=== PATIENT | female | born 1995 | race American Indian/Alaskan Native ===

== ENCOUNTER 2022-01-16 11:28 | Emergency (ER) | payer SELFPAY ==
--- NOTE | 2022-01-16 14:46 | XRay Report ---
CHEST 2 VIEWS INDICATION: Chest Pain. COMPARISON: None. FINDINGS: Support devices: None. Heart: Within normal limits. Lungs/Pleura: No acute air space or interstitial disease. No significant pleural effusion. IMPRESSION: No acute findings. Signer Name: Phillip Russell MD Signed: 01/16/2022 2:41 PM Workstation Name: [id number]
--- NOTE | 2022-01-16 15:00 | Event Note ---
ED Screening Note ED Screening Note: 26-year-old female history of hypertension on amlodipine regimen compliance sent in from her doctor's office for evaluation of uncontrolled blood pressure with headache and dizziness which started this morning. 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 In the setting of a significantly high volume and record number of patients presenting to the emergency department and the fact that we have a limited space to see patients we have implemented the provider in triage protocol this allows an expedited initial exam of patients that might otherwise have left without being seen or who would wait longer than usual to be seen by provider. I interviewed the patient and performed a limited physical exam. This patient is a pulled from the waiting room to triage room for an initial assessment of adrenal studies and then returned to the waiting room pending results of the studies. The ultimate final evaluation and disposition may be performed by another provider depending on room and provider availability.
[2022-01-16 15:41] LABS: Basophils % (Auto) 0.6 % (0.0-1.8); Eosinophils # (Auto) 0.1 K/mm3 (0.0-0.4); Eosinophils % (Auto) 1.5 % (0.0-4.3); Hematocrit 39.5 % (30.3-42.9); Hemoglobin 12.5 gm/dl (10.1-14.3); Lymphocytes # (Auto) 3.2 K/mm3 (1.2-5.4); Lymphocytes % (Auto) 39.9 % (13.4-35.0); Mean Corpuscular HGB Conc 32 % (30-34); Mean Corpuscular Volume 83 fl (79-97); Monocytes # (Auto) 0.4 K/mm3 (0.0-0.8); Monocytes % (Auto) 5.2 % (0.0-7.3); Platelet Count 384 K/mm3 (140-440); Red Blood Count 4.76 M/mm3 (3.65-5.03); Red Cell Distribution Width 14.7 % (13.2-15.2)
[2022-01-16 16:05] LABS: Alanine Aminotransferase 16 units/L (7-56); Albumin 4.6 g/dL (3.9-5); BUN/Creatinine Ratio 14; Blood Urea Nitrogen 11 mg/dL (7-17); Hemolysis Index 5
--- NOTE | 2022-01-16 16:16 | Cat Scan Report ---
CT head/brain wo con INDICATION / CLINICAL INFORMATION: 26 years Female; manning, hypertensive emergency. TECHNIQUE: Routine CT head without contrast. All CT scans at this location are performed using CT dos e reduction for ALARA by means of automated exposure control. COMPARISON: None. FINDINGS: BRAIN / INTRACRANIAL CONTENTS: No acute hemorrhage, mass effect, midline shift, hydrocephalus, or acu te, large territorial infarct. No signs of significant atrophy or chronic infarct. No significant whi te matter abnormality seen. CRANIOCERVICAL JUNCTION: No significant abnormality. ORBITS: No significant abnormality of visualized orbits. SINUSES / MASTOIDS: Minimal mucosal thickening in the ethmoids. ADDITIONAL FINDINGS: None. IMPRESSION: 1. No focal mass, hemorrhage, hydrocephalus, or acute, large territorial infarct. Signer Name: Jeffry Tse MD, III Signed: 01/16/2022 4:13 PM Workstation Name: [id number]
[2022-01-16] MEDS ORDERED: cloNIDine 0.1 MG TAB PO ONE (19:37)
[2022-01-16 22:38] LABS: Mucus,Urine 2+ /HPF; WBC,Urine < 1.0 /HPF (0.0-6.0)
--- NOTE | 2022-01-16 22:43 | Emergency Department Report ---
ED General Adult HPI - General Chief complaint: Medical Clearance Stated complaint: My doctor sent me here because my blood pressure is elevated Time Seen by Provider: 01/16/22 22:36 Source: patient, RN notes reviewed, old records reviewed Mode of arrival: Ambulatory Limitations: No Limitations - History of Present Illness Initial comments: The patient was evaluated in the emergency department for symptoms described in the history of present illness. He/she was evaluated in the context of the global COVID-19 pandemic, which necessitated consideration that the patient might be at risk for infection with the virus that causes COVID-19. Institution al protocols and algorithms that pertain to the evaluation of patients at risk for COVID-19 are in a state of rapid change based on information released by regulatory bodies including the CDC and federal and state organizations. These policies and algorithms were followed during the patient's care in the emergency department. Please note that these policies, procedures and recommendations changed on a rapid basis. This is a pleasant and cooperative 26-year-old female. She states that she is not and further reports that she has not delivered her given in the past 6 weeks. She has a history of body mass index of 41, she is not COVID- 19 vaccinated, and she has a history of hypertension. She ran out of her amlodipine, 10 mg daily, a few days ago. She states that she went to her primary care doctor's office, was found to have a blood pressure of 220, and is referred to the emergency room. To me, the patient denies all physical complaints, except for right-sided achy shoulder pain, because she believes that she slept on the shoulder or rested on it incorrectly. She denies a personal and family history of DVT, PE, CO, and ACS. She denies travel, surgery, immobilization, DVT and PE risk factors. She denies oral contraceptive use. 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 Patient does report that she snores quite a bit at night, but believes that sleep for the most part is restful, and reports that she typically does not fall asleep while watching TV or movies. She has no additional injuries or complaints at this time, and is indicative that she would like to be discharged -: days(s) Severity scale (0 -10): 7 Consistency: now resolved Improves with: medication Worsens with: other (Running out of medication) Associated Symptoms: denies other symptoms, other (Right shoulder pain) - Related Data Previous Rx's Medication Instructions Recorded Last Taken Type Permethrin 5% [Acticin 5% CREAM] 1 applicatio TP ONCE #60 gram 05/11/14 Unknown Rx Nitrofurantoin Shackelford/M-Cryst 100 mg PO Q12HR #14 capsule 08/29/15 Unknown Rx [Macrobid CAP] Amlodipine Besylate [Norvasc] 10 mg PO QDAY #60 tab 01/16/22 Unknown Rx Allergies Allergy/AdvReac Type Severity Reaction Status Date / Time No Known Allergies Allergy Verified 01/16/22 13:22 ED Review of Systems ROS: Stated complaint: CHEST PAIN/HIGH BP /HEADACHE Other details as noted in HPI Comment: All other systems reviewed and negative Musculoskeletal: arthralgia ED Past Medical Hx - Past Medical History Previous Medical History?: Yes Hx Hypertension: Yes - Surgical History Past Surgical History?: No - Social History Smoking Status: Never Smoker Substance Use Type: None - Medications Home Medications: Home Medications Medication Instructions Recorded Confirmed Last Taken Type Permethrin 5% [Acticin 5% CREAM] 1 applicatio TP ONCE #60 gram 05/11/14 Unknown Rx Nitrofurantoin Shackelford/M-Cryst 100 mg PO Q12HR #14 capsule 08/29/15 Unknown Rx [Macrobid CAP] Amlodipine Besylate [Norvasc] 10 mg PO QDAY #60 tab 01/16/22 Unknown Rx ED Physical Exam - General Limitations: No Limitations General appearance: alert, in no apparent distress, obese - Head Head exam: Present: atraumatic, normocephalic - Eye Eye exam: Present: normal appearance, EOMI, other (Visual acuity is intact to finger counting and color perception at a close distance). Absent: nystagmus - ENT ENT exam: Present: normal exam, normal orophraynx, mucous membranes moist - Neck Neck exam: Present: normal inspection, full ROM. Absent: tenderness, meningismus - Respiratory Respiratory exam: Present: normal lung sounds bilaterally. Absent: respiratory distress, wheezes, rales, rhonchi, stridor, decreased breath sounds - Cardiovascular Cardiovascular Exam: Present: regular rate, normal rhythm, normal heart sounds. Absent: bradycardia, tachycardia, irregular rhythm, systolic murmur, diastolic murmur, rubs, gallop - GI/Abdominal GI/Abdominal exam: Present: soft. Absent: distended, tenderness, guarding, rebound, rigid, pulsatile mass - Extremities Exam Extremities exam: Present: normal inspection, full ROM, normal capillary refill, other (2+ pulses noted in the bilateral upper and lower extremities. There is no palpable cord. negative Homans sign. Muscular compartments are soft. The pelvis is stable.). Absent: calf tenderness - Back Exam Back exam: Present: normal inspection, full ROM. Absent: muscle spasm, paraspinal tenderness, vertebral tenderness - Neurological Exam Neurological exam: Present: alert, oriented X3, normal gait, other (No facial droop. Tongue midline. Extraocular movements intact bilaterally. Facial sensation intact to light touch in V1, V2, V3 distribution bilaterally. 5 and a 5 strength in 4 extremities. Sensation intact to light touch in 4 extremities.). Absent: motor sensory deficit - Psychiatric Psychiatric exam: Present: normal affect, normal mood - Skin Skin exam: Present: warm, dry, intact, normal color. Absent: rash ED Course Vital Signs 01/16/22 01/16/22 01/16/22 13:19 17:17 19:35 Temperature 98.9 F Pulse Rate 89 100 H 89 Respiratory 18 Rate Blood Pressure Blood Pressure 191/110 190/98 [Left] O2 Sat by Pulse 100 99 99 Oximetry 01/16/22 01/16/22 19:43 21:22 Temperature 98.4 F Pulse Rate 84 87 Respiratory 18 Rate Blood Pressure 190/98 Blood Pressure 169/114 [Left] O2 Sat by Pulse 99 Oximetry ED Medical Decision Making - Lab Data Result diagrams: 01/16/22 15:19 01/16/22 15:19 Vital Signs 01/16/22 01/16/22 01/16/22 13:19 17:17 19:35 Temperature 98.9 F Pulse Rate 89 100 H 89 Respiratory 18 Rate Blood Pressure Blood Pressure 191/110 190/98 [Left] O2 Sat by Pulse 100 99 99 Oximetry 01/16/22 01/16/22 19:43 21:22 Temperature 98.4 F Pulse Rate 84 87 Respiratory 18 Rate Blood Pressure 190/98 Blood Pressure 169/114 [Left] O2 Sat by Pulse 99 Oximetry Lab Results 01/16/22 01/16/22 01/16/22 Range/Units 15:19 15:19 15:19 WBC 8.0 (4.5-11.0) K/mm3 RBC 4.76 (3.65-5.03) M/mm3 Hgb 12.5 (10.1-14.3) gm/dl Hct 39.5 (30.3-42.9) % MCV 83 (79-97) fl MCH 26 L (28-32) pg MCHC 32 (30-34) % RDW 14.7 (13.2-15.2) % Plt Count 384 (140-440) K/mm3 Lymph % (Auto) 39.9 H (13.4-35.0) % Shackelford % (Auto) 5.2 (0.0-7.3) % Eos % (Auto) 1.5 (0.0-4.3) % Baso % (Auto) 0.6 (0.0-1.8) % Lymph # (Auto) 3.2 (1.2-5.4) K/mm3 Shackelford # (Auto) 0.4 (0.0-0.8) K/mm3 Eos # (Auto) 0.1 (0.0-0.4) K/mm3 Baso # (Auto) 0.0 (0.0-0.1) K/mm3 Seg Neutrophils % 52.8 (40.0-70.0) % Seg Neutrophils # 4.2 (1.8-7.7) K/mm3 Sodium 141 (137-145) mmol/L Potassium 3.9 (3.6-5.0) mmol/L Chloride 103.6 (98-107) mmol/L Carbon Dioxide 28 (22-30) mmol/L Anion Gap 13 mmol/L BUN 11 (7-17) mg/dL Creatinine 0.8 (0.6-1.2) mg/dL Estimated GFR > 60 ml/min BUN/Creatinine Ratio 14 % Glucose 84 (65-100) mg/dL Calcium 9.0 (8.4-10.2) mg/dL Total Bilirubin 0.40 (0.1-1.2) mg/dL AST 21 (5-40) units/L ALT 16 (7-56) units/L Alkaline Phosphatase 90 (35-129) units/L Troponin T < 0.010 (0.00-0.029) ng/mL Total Protein 7.3 (6.3-8.2) g/dL Albumin 4.6 (3.9-5) g/dL Albumin/Globulin Ratio 1.7 % Lipase 21 (13-60) units/L HCG, Qual (Negative) 01/16/22 Range/Units 15:19 WBC (4.5-11.0) K/mm3 RBC (3.65-5.03) M/mm3 Hgb (10.1-14.3) gm/dl Hct (30.3-42.9) % MCV (79-97) fl MCH (28-32) pg MCHC (30-34) % RDW (13.2-15.2) % Plt Count (140-440) K/mm3 Lymph % (Auto) (13.4-35.0) % Shackelford % (Auto) (0.0-7.3) % Eos % (Auto) (0.0-4.3) % Baso % (Auto) (0.0-1.8) % Lymph # (Auto) (1.2-5.4) K/mm3 Shackelford # (Auto) (0.0-0.8) K/mm3 Eos # (Auto) (0.0-0.4) K/mm3 Baso # (Auto) (0.0-0.1) K/mm3 Seg Neutrophils % (40.0-70.0) % Seg Neutrophils # (1.8-7.7) K/mm3 Sodium (137-145) mmol/L Potassium (3.6-5.0) mmol/L Chloride (98-107) mmol/L Carbon Dioxide (22-30) mmol/L Anion Gap mmol/L BUN (7-17) mg/dL Creatinine (0.6-1.2) mg/dL Estimated GFR ml/min BUN/Creatinine Ratio % Glucose (65-100) mg/dL Calcium (8.4-10.2) mg/dL Total Bilirubin (0.1-1.2) mg/dL AST (5-40) units/L ALT (7-56) units/L Alkaline Phosphatase (35-129) units/L Troponin T (0.00-0.029) ng/mL Total Protein (6.3-8.2) g/dL Albumin (3.9-5) g/dL Albumin/Globulin Ratio % Lipase (13-60) units/L HCG, Qual Negative (Negative) - EKG Data -: EKG Interpreted by Pr EKG shows normal: sinus rhythm Rate: normal - EKG Data 01/16/22 22:38 The EKG is interpreted 22: 38 Sinus rhythm, rate 76 bpm. Normal axis, normal P wave axis, high left ventricular voltage, QTC 4 6 6 ms. This is an abnormal EKG. This is not a STEMI. - Radiology Data Radiology results: pending, report reviewed, image reviewed CT head/brain wo con INDICATION / CLINICAL INFORMATION: 26 years Female; manning, hypertensive emergency. TECHNIQUE: Routine CT head without contrast. All CT scans at this location are performed using CT dose reduction for ALARA by means of automated exposure control. COMPARISON: None. FINDINGS: BRAIN / INTRACRANIAL CONTENTS: No acute hemorrhage, mass effect, midline shift, hydrocephalus, or acute, large territorial infarct. No signs of significant atrophy or chronic infarct. No significant white matter abnormality seen. CRANIOCERVICAL JUNCTION: No significant abnormality. ORBITS: No significant abnormality of visualized orbits. SINUSES / MASTOIDS: Minimal mucosal thickening in the ethmoids. ADDITIONAL FINDINGS: None. IMPRESSION: 1. No focal mass, hemorrhage, hydrocephalus, or acute, large territorial infarct. Signer Name: Jeffry Tse MD, III Signed: 01/16/2022 3:13 PM Workstation Name: [id number] [id number] CHEST 2 VIEWS INDICATION: Chest Pain. COMPARISON: None. FINDINGS: Support devices: None. Heart: Within normal limits. Lungs/Pleura: No acute air space or interstitial disease. No significant pleural effusion. IMPRESSION: No acute findings. Signer Name: Phillip Russell MD Signed: 01/16/2022 1:41 PM Workstation Name: [id number] - Medical Decision Making Differential diagnosis, including but not limited to: Obesity, obstructive sleep apnea, hypertension, medication refill Assessment and plan: 26-year-old female with chronic hypertension. She is clinically sober with a GCS of 15, an NIH score of 0. She denies all physical complaints and pain to myself, with exception of nontraumatic right-sided shoulder pain, and the does not appear to be any shoulder redness, pus or streaking. Declines pain medication at this time. X-ray the chest, noncontrast CT scan of the brain, and laboratory studies were ordered prior to my personal evaluation. As per review of chart, the patient reportedly complained of nonspecific headache and chest pain. The patient is not currently tachycardic, tachypneic or hypoxic, she denies DVT and pulmonary embolism risk factors, she is low risk by Wells criteria for pulmonary embolism, and she is PERC negative. The patient is at low risk for major adverse cardiac event as per heart score. Troponin negative x1 in the context of days of elevated blood pressure. Patient has equal pulses in the upper and lower extremities, no pulsatile abdominal mass, and an unremarkable x-ray of the chest, therefore, aortic disease is very unlikely. Patient at low risk for major adverse cardiac event as per heart score. Patient has chronically elevated blood pressure, please reference the [employer] clinical policy on asymptomatic hypertension. She may have a component of undiagnosed obstructive sleep apnea, but she does n ot appear to be significantly symptomatic, I will defer to her outpatient primary care doctor to further evaluate and manage. Patient observed in this department for hours without clinical decompensation, and she is suitable for discharge with outpatient follow-up and amlodipine refill. Return precautions are reviewed. All questions answered Critical care attestation.: If time is entered above; I have spent that time in minutes in the direct care of this critically ill patient, excluding procedure time. ED Disposition Clinical Impression: Elevated blood pressure reading, Medication refill, History of headache, History of chest pain, BMI greater than 40 Disposition: 01 HOME / SELF CARE / HOMELESS Is pt being admited?: No Does the pt Need Aspirin: No Condition: Good Instructions: Hypertension, Adult, Sleep Apnea Additional Instructions: Please continue amlodipine as directed. May take [id number] Tylenol or ibuprofen as needed for physical pain. Recommend exercise as tolerated, and aggressive weight loss as tolerated. Patient may have undiagnosed obstructive sleep apnea, which may be contributing to hypertension and elevated blood pressure. Please follow-up with your primary care doctor or sleep specialist, such as Dr. Herrera within the next 7 to 10 days for outpatient checkup and evaluation, for possible obstructive sleep apnea. If patient has sleep apnea, she may be started on a CPAP or BiPAP, which over time, may assist with elevated blood pressure. Weight loss, diet and exercise may also help with lowering blood pressure. Please note that long-term complications of hypertension and high blood pressure include stroke, heart attack, disability, paralysis, loss of quality of life. Please return to the emergency room right away with new pain, worsened pain, migration of pain, projectile vomiting, change in mental status, confusion, inability tolerate liquid feeds, new, worsened or different symptoms not present on the initial emergency room evaluation Referrals: SHERLEY HERRERA MD [Staff Physician] - 7-10 days [facility] [Provider Group] - 7-10 days Forms: Work/School Release Form(ED)
[2022-01-16 22:44] LABS: Color,Urine Yellow (Yellow)
[2022-01-16 23:43] VITALS: BP 166/113
--- NOTE | 2022-01-17 09:13 | Electrocardiograph Report ---
[facility] Test Date: 2022-01-16 Test Time: 13:25:31 Pat Name: PHUONG CHAN Department: Room: Gender: F Scrap Baler: TAWNY : 1995 Requested By: BALBIR MANNING Order Number: [id number] Reading MD: Edgar Juarez Measurements Intervals Bent Rate: 76 P: 46 AR: 179 QRS: 62 QRSD: 89 T: -11 QT: 413 QTc: 466 Interpretive Statements Sinus rhythm No previous ECG available for comparison Electronically Signed On 01-17-2022 9:13:56 EDT by Edgar Juarez
== END 2022-01-16 23:24 | disposition home or self-care (01) ==
LOC: ED 11:28
DX: I10 Essential (primary) hypertension (principal); Z76.0 Encounter for issue of repeat prescription; R51.9 Headache, unspecified; R07.9 Chest pain, unspecified; Z68.41 Body mass index [BMI] 40.0-44.9, adult
CPT/HCPCS: 36415; 70450; 71046; 80053; 81001; 83690; 84484; 84703; 85025; 93005; 99284